=== PATIENT | female | born 1970 | race Caucasian/White ===

== ENCOUNTER 2025-05-07 16:00 | Outpatient (RCR) | payer BC, SELFPAY ==
--- NOTE | 2025-05-05 16:27 | HP.PTEVAL ---
Patient's Visit Information Visit Information Visit Information: NEREIDA OVIEDO is a 54 year old F referred to Physical Therapy by Dr. David Montes MD with a diagnosis of R knee OA. Date of Evaluation: 05/05/25 Physical Therapist: Eugene Tovar, PT, ATC Visit Plan Frequency: 1x/Week Duration: 1 Week Plan: Educate pt on aquatic therapy program consisting of core strengthening and B LE strengthening program Subjective Subjective: Pt reports she injured her R knee approximately 10 years ago. pt notes her knee pain has progressively worsened over this span, most notably over the past 6 years. Pt notes she had recent x-rays which revealed severe OA in R knee. 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 pt notes she is scheduled to have a R TKA performed on 06/24/25. Pt notes she is here today in order to begin her pre-hab started prior to her surgery. Pt denies any LE radiculopathy at this time. Pt notes sleep difficulty at this time secondary to pain unless she takes pain meds. Pt is a bowler and notes she is still able to bowl at this time secondary to her L knee feeling fine. 0/10 pain at rest, 7/10 pain at worst. Pt reports her R knee will lock up on her when she stands for a prolonged perior of time. Pain R knee: Pain Intensity (Out of 10): 0 Pain Intensity Range: 7 Objective Objective: Neuro: B LE sensation is WNL to light touch. ROM: B knees are equal when compared bilaterally MMT: B knees are strong and equal when compared bilaterally Gait: Pt ambulates with a slower cadance. Minor limp of R LE Balance/Special Test Scores Lower Extremity Functional Score: 52 Goals Goal 1:: Pt will be I with an aquatic therapy program after one PT visit Goal Time Frame: 1 Week Rehabilitation Potential Physical Therapy Diagnosis: Pt has R knee pain and intolerance for her job requirements secondary to R knee OA Rehabilitation Potential: Good Anticipated Interventions Patient/Client Instruction: Educate patient on: Condition and Plan of Care For the Purpose of:: To improve self management Therapeutic Exercise to Include: Strength training, Flexibilty training, In an aquatic setting and Dynamic Lumbar Stabilization For the Purpose of:: To decrease pain and To increase ROM Text: Thank you for the opportunity to evaluate your patient. For Medicare and Medicare HMO plans, please review the plan of care and approve it. It will need to be FAXED BACK to us at [phone] for Medicare purposes. For Medicare only, by signing this I certify the plan of care. Please let me know if there are questions or concerns regarding this plan of care. Physician Signature: Date:
--- NOTE | 2025-06-15 11:15 | HP.PT.NRP ---
Patient Information Patient Information: NEREIDA OVIEDO was seen in my office for initial evaluation on 05/05/25. The following Plan of Care was established for this patient: POC Established Initial Frequency: 1x/Week Initial Duration: 1 Week Anticipated Interventions Patient/Client Instruction: Educate patient on: Condition and Plan of Care For the Purpose of:: To improve self management Therapeutic Exercise to Include: Strength training, Flexibilty training, In an aquatic setting and Dynamic Lumbar Stabilization For the Purpose of:: To decrease pain and To increase ROM Last Seen Last Seen: This patient was last seen in our office . Pertinent comments regarding their Physical therapy will appear below: Pt has not returned in greater than 30 days and is discontinued at this time. At this point I will be discontinuing this patient from physical therapy. I would be happy to see this patient again in the future if found appropriate by the physician. Thank you! Eugene Tovar, PT, ATC Balance/Gait/Functional tests Balance/Special Test Scores Lower Extremity Functional Score: 52
== END 2025-05-07 19:00 | disposition home or self-care (01) ==
LOC: PT 16:00
PROVIDERS: PCP Student in an Organized Health Care Education/Training Program; Referring Provider Orthopaedic Surgery; Visit Provider Orthopaedic Surgery
DX: M17.11 Unilateral primary osteoarthritis, right knee (principal); M25.561 Pain in right knee; G89.29 Other chronic pain
CPT/HCPCS: 97113; 97161